=== PATIENT | female | born 1970 | race Two or more races ===

== ENCOUNTER → 2017-09-28 | Day surgery (SDC) | payer OTHER ==
[~2017-09-28] MED LIST: ACETAMINOPHEN 1000 MG/100 ML 100 ML IV ONE; HEPARIN SODIUM - IV 10,000 UNITS/10 ML VIAL ONE; LACTATED RINGER'S 1000 ML INJ 1,000 ML ONE; LIDOCAINE 1%/EPINEPHrine 1:100,000 SOLN 30 ML VIAL ONE; MIDAZOLAM HCL 2 MG/2 ML VIAL ONE; PROPOFOL 200 MG/20 ML AMP IV ONE; SODIUM CHLORIDE 0.9% INJ 10 ML ONE; ceFAZolin 2 GM PREMIX 50 ML ONE
--- NOTE | 2017-09-28 11:20 | TN ---
cc: STELLA ROCHA MD, DAVID G. M.D. CHEW, BOON Y. M.D. DATE OF SURGERY: 09/28/2017 PREOPERATIVE DIAGNOSIS Left breast cancer. POSTOPERATIVE DIAGNOSIS Left breast cancer. PROCEDURE Right subclavian Ucpdca-V-[id number] placement under direct fluoroscopic visualization. SURGEON Dr. Manuel Su. ANESTHESIA Local 1% lidocaine with epinephrine plus TIVA. INDICATIONS This is a very pleasant 47-year-old woman who was recently diagnosed with left breast cancer, T1c,N1a, who was seen by Dr. Vogel and tested with genomic testing. Reportedly per patient the Oncotype DX placed her into a high-risk category and she was advised to pursue chemotherapy. She is presently having tissue expansion through Dr. Stella Rocha's office. Plans were made for port placement on the right side. INTRAOPERATIVE FINDINGS Successful placement of right subclavian Nfgfxh-X-Knjv seen under direct fluoroscopy with the tip of the catheter in the superior vena cava. There is good port function with easy blood return and forward concentrated heparinized saline flush flowed through the port. A portable chest x-ray is pending. ESTIMATED BLOOD LOSS Less than 10 mL. DESCRIPTION OF PROCEDURE IN DETAIL The patient was identified as Chitra Armstrong, taken to the operating room and placed in supine position. A rolled sheet was placed between the shoulder blades. Sequential compression devices were placed on bilateral lower extremities. Following induction of adequate IV anesthesia the upper chest and neck were prepped and draped in the usual sterile fashion with Betadine. A timeout procedure was performed. Following completion of the timeout procedure to everyone's satisfaction within the room the area in the right subclavian position was infiltrated with local anesthetic. With the patient in Trendelenburg position the right subclavian vein was entered without difficulty using the introducer needle. The guidewire was advanced through the introducer needle into appropriate position as seen on C-arm fluoroscopy without difficulty. An incision was made at the guidewire exit site and Rrsjjk-K-Xnpd pocket developed on the anterior pectoralis fascia. The Rcyeir-V-Vtof which had been flushed with heparinized saline was placed into the Tkhdhr-L-Taja pocket with two 2-0 Prolene stay sutures. The catheter was cut to an appropriate length as seen on C-arm fluoroscopy. The dilator and dilating sheath were placed over the guidewire without difficulty and the guidewire and dilator were removed. The catheter was fed through the dilating sheath. The dilating sheath was then removed without difficulty. C-arm fluoroscopy demonstrated the tip of the catheter in the distal superior vena cava. Port function was tested and there was easy blood return and forward concentrated heparinized saline flush flowed through the port. The incision was closed with 3-0 Vicryl and 4-0 Monocryl. Skin incisions were covered with Mastisol, half-inch brown Steri-Strips, gauze and Tegaderm. The patient tolerated the procedure without apparent complication. Sponge, needle and instrument counts were correct at the end of the case. ADDENDUM A portable chest x-ray has been ordered. MD REMY Ramos/MAURILIO /10:47 AM /11:06 AM
== END | disposition home or self-care (01) ==
LOC: ESDC 08:51
PROVIDERS: ATTEND Surgery Trauma Surgery
DX: C50.912 Malignant neoplasm of unspecified site of left female breast (principal); Z45.2 Encounter for adjustment and management of vascular access device
CPT/HCPCS: 00532; 36561; 77001; C1788; J0131; J0690; J1644; J2250; J3010; J7120